=== PATIENT | female | born 1950 | race Caucasian/White ===

== ENCOUNTER 2023-07-23 15:42 | Emergency (ER) | payer MEDICARE, OTHER ==
[2023-07-23 16:02] VITALS: BP 123/64; O2SAT 99
--- NOTE | 2023-07-23 16:42 | XRAY Report ---
PROCEDURE: Knee 4 View LT INDICATIONS: Trauma TECHNIQUE: 4 views of the left knee(s) were acquired. COMPARISON: None. FINDINGS: Bones: No fractures or dislocations. No suspicious bony lesions. Soft tissues: Trace knee joint effusion. No suspicious soft tissue calcifications or masses. Chondr ocalcinosis. IMPRESSION: 1.No acute bony abnormality. 2.Chondrocalcinosis is present, can be seen with CPPD arthropathy or hemachromatosis among other thin gs. Reviewed by: Angel Seay MD on 07/23/2023 4:40 PM PDT Approved by: Angel Seay MD on 07/23/2023 4:40 PM PDT Station ID: [id number]
[2023-07-23] MEDS ORDERED: traMADol 50 MG TABLET PO STA (17:26)
--- NOTE | 2023-07-23 17:29 | ED Physician Documentation ---
History of Present Illness - Stated complaint Stated Complaint: L KNEE PX - Chief complaint Chief Complaint: Trauma Ext - Additonal information Additional information: 72-year-old female presents emergency department for evaluation of acute left knee pain. Reports that when she was working in the garden this week she tweaked it but did not think much of it. Today she was golfing and when she planted her left knee to take a swing she felt a sharp pull on the lateral side of the knee. Now unable to bear weight. She did not fall. No history of previous knee injury preceding the last week. Review of Systems Musculoskeletal: reports: Joint pain PD PAST MEDICAL HISTORY - Present Medications Home Medications: Ambulatory Orders Medication Instructions Recorded Confirmed traMADol [Ultram] 50 mg PO TID PRN #20 tab 07/23/23 - Allergies Allergies/Adverse Reactions: Allergies Allergy/AdvReac Type Severity Reaction Status Date / Time codeine Allergy Rash Verified 07/23/23 16:00 COVID-19 (SARS-CoV-2) Allergy Anaphylaxis Verified 07/23/23 16:00 vaccine, mireya morphine Allergy Rash Verified 07/23/23 16:00 PD ED PE EXPANDED - Extremities Extremities: Left knee (Mild tenderness elicited with palpation of the lateral joint line. Normal flexion extension. No laxity noted. No tenderness of the proximal fibular or tubular head. No swelling or ecchymosis.) Results - Vitals Vitals: Vital Signs - 24 hr 07/23/23 15:56 Temperature 36.4 C L Heart Rate 64 Respiratory 16 Rate Blood Pressure 123/64 O2 Saturation 99 Oxygen O2 Source Room air - Rads (name of study) left knee Relevant Findings:: Final report received (No acute bony abnormality. Chondrocalcinosis is present which can be seen in CPPD arthropathy or hemochromatosis among other things.) PD Medical Decision Making - ED course Complexity details: reviewed results, re-evaluated patient, considered differential, d/w patient ED course: 72-year-old female presents for acute left knee pain sustained when she planted her left leg during a golf swing. However in the preceding week she has "tweaked" her left knee while gardening. now unwilling to bear weight. Tenderness along the lateral joint line. no laxity. negative xray imaging. suspect internal knee derangement. placed in a knee immobilizer. patient tolerated crutches well. given tramadol in ED will rx limited amount on dc. advised close f/u with pcp. if not improved with conservative measures can consider PT vs MRI vs ortho referral I am prescribing a short course of short-acting opioid pain medication for this patient. 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 I have discussed that the opioids are for short term therapy only, and will not be refilled from the ED. Departure - Departure Disposition: 01 Home, Self Care Clinical Impression: Strain of knee and leg, left Qualifiers: Encounter type: initial encounter Qualified Code(s): S86.912A - Strain of unspecified muscle(s) and tendon(s) at lower leg level, left leg, initial encounter Condition: Stable Record reviewed to determine appropriate education?: Yes Instructions: ED Sprain Knee Prescriptions: traMADol [Ultram] 50 mg PO TID PRN #20 tab PRN Reason: Pain >8 Comments: Antonia you strained your left knee when golfing today though earlier this week it sounds like he tweaked it while gardening. The x-ray does not show any broken bones and your history is suggestive of ligament or meniscal damage. We have given you a knee immobilizer which I recommend that you wear when out of bed for the next week or so. We have given crutches to help you ambulate. In general over the next several days I like you to ice the knee for 10 minutes 3-4 times a day. You can take Tylenol or ibuprofen for discomfort. For more severe pain you can try the tramadol. With most knee sprains and strains, conservative therapy makes the symptoms better. If you are not having improved pain and ability to bear weight after 7 to 10 days, you should discuss this with your primary doctor. They may benefit to make a referral for you to physical therapy versus consideration of referral for an MRI or follow-up with orthopedics. I am prescribing a short course of narcotic pain medication for you. These are potentially dangerous and addictive medications that should be used carefully. These medications may constipate you. Take an kvbz-vit-hvcpnni stool softener (docusate) twice daily with plenty of water while taking these medications. If you go 24 hours without a bowel movement, take [id number] miralax, per package instructions. Do not drink or drive while taking these medications. If you received narcotic or sedating medications while in the emergency department, do not drive for 24 hours. Store this medication in a safe, secure place and out of reach of children. It is a violation of federal law to give or sell this medication to another person or to use in a manner other than prescribed. The ED will not refill narcotic prescriptions, including prescriptions lost or stolen. To dispose of unwanted medications: 1. [facility] at [address] in [place] has a medication drop box. They accept prescription medications (in pill form) Monday through Monday 9:00 a.m. to 5:00 p.m. 2. [facility] [employer] accepts prescription medications (in pill form only) for disposal year round. Call for more information. 3. Contact the [facility] for the next [facility] sponsored prescription drug collection event. , [phone], or [phone]; Note that many narcotic pain relievers also contain Tylenol/acetaminophen. Please ensure that your total dose of acetaminophen from all sources does not exceed 3 g (3000 mg) per day. Forms: PCP List
== END 2023-07-23 18:06 | disposition home or self-care (01) ==
LOC: ED 15:42
DX: S86.912A Strain of unspecified muscle(s) and tendon(s) at lower leg level, left leg, initial encounter (principal); X50.9XXA Other and unspecified overexertion or strenuous movements or postures, initial encounter; Y93.H2 Activity, gardening and landscaping; Y92.007 Garden or yard of unspecified non-institutional (private) residence as the place of occurrence of the external cause
CPT/HCPCS: 73564; 99283; A9270